=== PATIENT | male | born 1930 | race Caucasian/White ===

== ENCOUNTER 2018-12-08 16:14 | Inpatient (IN) | payer MEDICARE, MEDICAID ==
[~2018-12-08] VITALS: Ht 180.3 cm; Wt 90.3 kg
--- NOTE | ~2018-12-08 | EEG ---
[address] [address] EEG STUDY REPORT Name: JODI WAGGONER Room: [address] IN M.R.#: [id number] Admission: 12/08/18 Attend Phys: Chandan Marquez MD Discharge: Date of : [birth year] Report #: [id number] THIS REPORT FOR: //name// CC: [facility] DATE OF SERVICE: 12/14/2018 This patient is being evaluated for altered mental status. EEG is being done to further evaluate that. EEG was done by placing the electrodes by standard 10-20 system of electrode placement. Both referential and sequential montages were used for recording. Background activity in this patient's EEG is about 7-8 Hz and 30 microvolt. He became drowsy and that is associated with bilateral slowing. Photic stimulation is unremarkable. Throughout the record, no active epileptiform activity was noted. IMPRESSION: This patient's EEG demonstrates intermixed theta range slowing on both sides. That is a nonspecific abnormality, which can occur with encephalopathy, effect of psychotropic medication, dementia, etc. Clinical correlation is recommended. By: [id number] 1955Lee Gale MD /nt
[2018-12-08 16:17] VITALS: BP 100/45
[2018-12-08] MEDS ORDERED: ASPIR 8181 MG PO (16:34)
[2018-12-08] MEDS ORDERED: PRILOSEC 10MG C10 MG PO (16:34)
[2018-12-08] MEDS ORDERED: TYLENOL EXTRA500 MG PO (16:34)
[2018-12-08] MEDS ORDERED: CELEXA 10 MG TA10 M1 PO (16:34)
[2018-12-08] MEDS ORDERED: COSOPT OCUMETER10 M1 OPHTHALMIC (16:35)
[2018-12-08] MEDS ORDERED: ARICEPT 5 MG TAB5 MG PO (16:35)
[2018-12-08] MEDS ORDERED: FREEZE IT RE113.4 GM TOP (16:36)
[2018-12-08] MEDS ORDERED: SECURA ANTIFUNG57 GM TOP (16:36)
[2018-12-08] MEDS ORDERED: NAMENDA 5 MG TAB5 M1 PO (16:37)
[2018-12-08] MEDS ORDERED: LOPRESSOR50 PO (16:37)
[2018-12-08] MEDS ORDERED: LATANOPROST 0.2.5 ML OPHTHALMIC (16:37)
[2018-12-08] MEDS ORDERED: THEREMS1 EAC1 PO (16:38)
[2018-12-08] MEDS ORDERED: SENNA8.6 MG PO (16:38)
[2018-12-08] MEDS ORDERED: FLOMAX0.4 MG PO (16:38)
[2018-12-08] MEDS ORDERED: MIRALAX17 G1 PO (16:38)
[2018-12-08 17:08] LABS: HEMATOCRIT 39.9 % (42.0-52.0); HEMOGLOBIN 13.2 gm/dL (14.0-18.0); MCH 30.5 pg (26.0-34.0); MCV 92.4 fL (80.0-100.0); MPV 8.1 fl. (7.2-11.1); NUCLEATED RBCS 0 /100WBC; PLATELET COUNT* 194 thou/uL (150-400); RBC 4.32 mil/uL (4.50-6.00); RDW-CV 15.1 % (10.5-14.5); WBC 20.1 thou/uL (4.0-11.0)
[2018-12-08 17:17] LABS: ALBUMIN 3.4 g/dL (3.4-5.0); CREATININE 1.4 mg/dL (0.6-1.3); POTASSIUM 3.8 mmol/L (3.5-5.1); TOTAL BILIRUBIN 1.3 mg/dL (<0.1-1.0)
[2018-12-08 17:35] LABS: ABSOLUTE LYMPHOCYTES 1.2 thou/uL (0.8-5.3); ABSOLUTE MONOCYTES 1.2 thou/uL (0.0-1.2); ABSOLUTE NEUTROPHILS 17.7 thou/uL (1.6-8.1); PLATELET ESTIMATE ADEQUATE
[2018-12-08 18:37] VITALS: BP 109/50
[2018-12-08 19:01] VITALS: BP 131/66
[2018-12-09] VITALS: BP 108/59
[2018-12-09] LABS: URINE BLOOD 2+ (Negative); URINE CLARITY CLEAR; URINE COLOR DARK YELLOW; URINE GLUCOSE-RANDOM TRACE (Negative); URINE KETONES TRACE (Negative); URINE LEUKOCYTES-REFLEX TRACE (Negative); URINE PROTEIN 1+ (Negative); URINE SPECIFIC GRAVITY 1.025 (1.005-1.030); URINE UROBILINOGEN >= 8.0 E.U./dl (0.2-1.0)
[2018-12-09 00:02] LABS: URINE BILIRUBIN 1+ (Negative); URINE NITRITE-REFLEX POSITIVE (Negative)
[2018-12-09 00:05] LABS: ICTOTEST (BILI CONFIRMATORY) Negative (Negative)
[2018-12-09 00:41] LABS: CASTS None Seen /LPF (None Seen); SQUAMOUS 0-3 Few /LPF (0-3); URINE WBC-REFLEX >25 Many /HPF (0-5)
[2018-12-09 00:42] LABS: CRYSTALS None Seen /LPF (None Seen); URINE RBC 3-10 Few /HPF (0-2)
[2018-12-09 04:46] LABS: ABSOLUTE EOSINOPHILS 0.1 thou/uL (0.0-0.7); ABSOLUTE LYMPHOCYTES 0.6 thou/uL (0.8-5.3); ABSOLUTE MONOCYTES 0.8 thou/uL (0.0-1.2); BASOPHILS 0.2 %; EOSINOPHILS 0.4 %; HEMATOCRIT 35.8 % (42.0-52.0); LYMPHOCYTES 4.1 %; MCH 30.6 pg (26.0-34.0); MCHC 33.5 g/dL (28.0-37.0); MCV 91.4 fL (80.0-100.0); MONOCYTES 5.3 %; MPV 8.4 fl. (7.2-11.1); NUCLEATED RBCS 0 /100WBC; PLATELET COUNT* 170 thou/uL (150-400); RBC 3.91 mil/uL (4.50-6.00); RDW-CV 14.8 % (10.5-14.5); WBC 14.4 thou/uL (4.0-11.0)
[2018-12-09 05:01] LABS: CALCIUM 8.2 mg/dL (8.5-10.1); POTASSIUM 3.4 mmol/L (3.5-5.1)
[2018-12-09 08:00] VITALS: BP 169/85
[2018-12-09 16:04] VITALS: BP 139/84
[2018-12-10] VITALS: BP 156/94; BP 171/77
[2018-12-10 04:30] LABS: ABSOLUTE BASOPHILS 0.1 thou/uL (0.0-0.2); ABSOLUTE EOSINOPHILS 0.1 thou/uL (0.0-0.7); ABSOLUTE LYMPHOCYTES 0.7 thou/uL (0.8-5.3); ABSOLUTE MONOCYTES 0.8 thou/uL (0.0-1.2); ABSOLUTE NEUTROPHILS 11.1 thou/uL (1.6-8.1); BASOPHILS 0.4 %; EOSINOPHILS 0.6 %; HEMATOCRIT 40.4 % (42.0-52.0); HEMOGLOBIN 13.4 gm/dL (14.0-18.0); LYMPHOCYTES 5.8 %; MCH 30.5 pg (26.0-34.0); MCHC 33.2 g/dL (28.0-37.0); MCV 91.7 fL (80.0-100.0); MONOCYTES 6.1 %; MPV 8.2 fl. (7.2-11.1); NUCLEATED RBCS 0 /100WBC; PLATELET COUNT* 185 thou/uL (150-400); POLYS 87.1 %; RBC 4.41 mil/uL (4.50-6.00); RDW-CV 14.8 % (10.5-14.5); WBC 12.8 thou/uL (4.0-11.0)
[2018-12-10 04:39] LABS: CALCIUM 8.8 mg/dL (8.5-10.1); CREATININE 0.9 mg/dL (0.6-1.3); POTASSIUM 3.8 mmol/L (3.5-5.1); TOTAL BILIRUBIN 1.3 mg/dL (<0.1-1.0); TOTAL PROTEIN 6.7 g/dL (6.4-8.2)
[2018-12-10 06:00] VITALS: BP 154/82
[2018-12-10 12:00] VITALS: BP 133/69
[2018-12-10 16:58] VITALS: BP 143/43
[2018-12-10 20:15] VITALS: BP 141/65
[2018-12-11] VITALS: BP 169/73
[2018-12-11 04:00] VITALS: BP 159/64
[2018-12-11 08:45] VITALS: BP 168/99
[2018-12-11 12:15] VITALS: BP 156/97
[2018-12-11 16:00] VITALS: BP 150/71
[2018-12-11 19:45] VITALS: BP 142/66
[2018-12-12 00:35] VITALS: BP 174/91
[2018-12-12 04:30] VITALS: BP 168/91
[2018-12-12 08:00] VITALS: BP 163/73
[2018-12-12 16:48] VITALS: BP 109/71
[2018-12-12 20:30] VITALS: BP 147/78
[2018-12-13] VITALS: BP 171/80
[2018-12-13 04:00] VITALS: BP 170/86
[2018-12-13 04:33] LABS: CALCIUM 8.2 mg/dL (8.5-10.1); CREATININE 0.8 mg/dL (0.6-1.3); MAGNESIUM 1.7 mg/dL (1.8-2.4)
[2018-12-13 04:39] LABS: HEMATOCRIT 37.9 % (42.0-52.0); HEMOGLOBIN 12.6 gm/dL (14.0-18.0); MCH 30.4 pg (26.0-34.0); MCHC 33.3 g/dL (28.0-37.0); MCV 91.4 fL (80.0-100.0); MPV 8.2 fl. (7.2-11.1); NUCLEATED RBCS 0 /100WBC; PLATELET COUNT* 238 thou/uL (150-400); RBC 4.15 mil/uL (4.50-6.00); RDW-CV 14.5 % (10.5-14.5); WBC 9.3 thou/uL (4.0-11.0)
[2018-12-13 06:56] LABS: ABSOLUTE EOSINOPHILS 0.3 thou/uL (0.0-0.7); ABSOLUTE LYMPHOCYTES 0.9 thou/uL (0.8-5.3); ABSOLUTE MONOCYTES 0.6 thou/uL (0.0-1.2); ABSOLUTE NEUTROPHILS 7.5 thou/uL (1.6-8.1); ATYPICAL LYMPHS 5 %; METAMYELOCYTES 2 %; PLATELET ESTIMATE ADEQUATE
[2018-12-13 08:00] VITALS: BP 172/87
[2018-12-13 16:00] VITALS: BP 91/59
[2018-12-13 20:15] VITALS: BP 140/67
[2018-12-13 23:30] VITALS: BP 127/80
[2018-12-14 03:45] VITALS: BP 170/80
[2018-12-14 04:28] LABS: ABSOLUTE BASOPHILS 0.1 thou/uL (0.0-0.2); ABSOLUTE EOSINOPHILS 0.4 thou/uL (0.0-0.7); ABSOLUTE LYMPHOCYTES 1.1 thou/uL (0.8-5.3); ABSOLUTE NEUTROPHILS 6.5 thou/uL (1.6-8.1); BASOPHILS 0.9 %; EOSINOPHILS 4.4 %; HEMATOCRIT 36.6 % (42.0-52.0); HEMOGLOBIN 12.2 gm/dL (14.0-18.0); LYMPHOCYTES 11.7 %; MCH 30.4 pg (26.0-34.0); MCHC 33.5 g/dL (28.0-37.0); MCV 90.6 fL (80.0-100.0); MONOCYTES 10.8 %; MPV 7.4 fl. (7.2-11.1); NUCLEATED RBCS 0 /100WBC; PLATELET COUNT* 262 thou/uL (150-400); POLYS 72.2 %; RBC 4.03 mil/uL (4.50-6.00); RDW-CV 14.6 % (10.5-14.5)
[2018-12-14 04:58] LABS: ALBUMIN 2.5 g/dL (3.4-5.0); CREATININE 0.8 mg/dL (0.6-1.3); MAGNESIUM 1.7 mg/dL (1.8-2.4); POTASSIUM 3.9 mmol/L (3.5-5.1); TOTAL BILIRUBIN 0.9 mg/dL (<0.1-1.0)
[2018-12-14 08:25] VITALS: BP 144/67
[2018-12-14 15:45] VITALS: BP 124/63
[2018-12-14 20:03] VITALS: BP 138/70
[2018-12-15] VITALS: BP 146/74
[2018-12-15 04:30] VITALS: BP 148/65
[2018-12-15 09:15] VITALS: BP 147/75
[2018-12-15 12:28] VITALS: BP 147/75
[2018-12-15] MEDS ORDERED: CEFUROXIME500 MG PO (12:42)
[2018-12-15 14:22] VITALS: BP 147/75
== END 2018-12-15 14:35 | DRG 871 ==
LOC: M.ERS 16:14 → M.3W 17:27 → M.TBA-ER 17:27 → M.3W 18:49
PROVIDERS: Family Medicine; Nurse Practitioner Family; ADMIT Internal Medicine
DX: A41.9 Sepsis, unspecified organism (principal); G93.41 Metabolic encephalopathy; N39.0 Urinary tract infection, site not specified; N17.9 Acute kidney failure, unspecified; F01.50 Vascular dementia, unspecified severity, without behavioral disturbance, psychotic disturbance, mood disturbance, and anxiety; H02.409 Unspecified ptosis of unspecified eyelid; E87.6 Hypokalemia; E83.42 Hypomagnesemia; Z86.73 Personal history of transient ischemic attack (TIA), and cerebral infarction without residual deficits; Z88.6 Allergy status to analgesic agent; Z88.8 Allergy status to other drugs, medicaments and biological substances; Z79.82 Long term (current) use of aspirin; Z79.899 Other long term (current) drug therapy